=== PATIENT | female | born 1990 | race Asian ===

== ENCOUNTER 2018-12-26 14:09 | Outpatient (CLI) | payer OTHER ==
[2018-12-26 16:40] LABS: ADD MAN DIFF? NO
[2018-12-26 16:44] LABS: WHITE BLOOD COUNT 9.2 10^3/ul (4.8-10.8)
[2018-12-26 16:44] LABS: BASOPHILS % 0.2 % (0.0-2.0); EOSINOPHILS # 0.1 10^3/ul (0.0-0.5); EOSINOPHILS % 0.5 % (0.0-7.0); HEMOGLOBIN 11.4 g/dl (12.0-16.0); LYMPHOCYTES # 1.7 10^3/ul (0.8-2.9); LYMPHOCYTES % 18.6 % (15.0-51.0); MEAN CORPUSCULAR HEMOGLOBIN 31.6 pg (29.0-33.0); MEAN CORPUSCULAR HGB CONC 32.6 g/dl (32.0-37.0); MONOCYTE # 0.7 10^3/ul (0.3-0.9); MONOCYTES % 7.4 % (0.0-11.0); NEUTROPHIL # 6.6 10^3/ul (1.6-7.5); NEUTROPHILS % 72.3 % (39.0-77.0); PLATELET COUNT 164 10^3/UL (140-415); RED BLOOD COUNT 3.61 10^6/ul (4.20-5.40); RED CELL DISTRIBUTION WIDTH 12.9 % (11.5-14.5)
[2018-12-26 16:54] LABS: ADD UMIC NO; UR ASCORBIC ACID NEGATIVE (NEGATIVE); UR BILIRUBIN (Dip) NEGATIVE (NEGATIVE); UR BLOOD (Dip) NEGATIVE (NEGATIVE); UR CLARITY CLEAR (CLEAR); UR COLOR YELLOW (YELLOW); UR GLUCOSE (Dip) NEGATIVE (NEGATIVE); UR KETONES (Dip) NEGATIVE (NEGATIVE); UR LEUKOCYTE ESTERASE (Dip) NEGATIVE Leu/ul (NEGATIVE); UR NITRITE (Dip) NEGATIVE (NEGATIVE); UR SPECIFIC GRAVITY (Dip) 1.015 (1.003-1.030); UR TOTAL PROTEIN (Dip) NEGATIVE (NEGATIVE); UR UROBILINOGEN (Dip) NEGATIVE (NEGATIVE)
== END 2018-12-26 18:27 | disposition home or self-care (01) ==
LOC: OBT 14:09 → L-D 14:12 → OBT 18:27
DX: O60.03 Preterm labor without delivery, third trimester (principal); Z3A.31 31 weeks gestation of pregnancy
CPT/HCPCS: 76815; 76818; 81003; 85025; 87086

== ENCOUNTER 2019-02-19 14:38 | Outpatient (CLI) | payer SELFPAY, OTHER | END 2019-02-19 18:25 | disposition home or self-care (01) | LOC: OBT 14:38 → L-D 14:38 → OBT 18:25 | DX: O62.9 Abnormality of forces of labor, unspecified (principal); Z3A.39 39 weeks gestation of pregnancy | CPT/HCPCS: 76815; 76818 ==

== ENCOUNTER 2019-02-24 03:00 | Inpatient (IN) | payer MEDICAID, OTHER ==
[2019-02-24] MEDS ORDERED: METHYLERGONOVINE 0.2 MG INJ IM ×2 (04:30→15:30)
[2019-02-24] MEDS ORDERED: LIDOCAINE 1% (MPF) 30 ML INJ INJ (04:30)
[2019-02-24] MEDS ORDERED: MINERAL OIL LIGHT 10 ML VIAL TOP (04:30)
[2019-02-24] MEDS ORDERED: CARBOPROST 250 MCG INJ IM ×2 (04:30→15:30)
[2019-02-24] MEDS ORDERED: MISOPROSTOL 200 MCG TAB PR ×2 (04:30→15:30)
[2019-02-24] MEDS ORDERED: OXYTOCIN 30 UNITS/LR 500 ML IV ×3 (04:30→15:30)
[2019-02-24] MEDS ORDERED: BUTORPHANOL 2 MG INJ IV (04:30)
[2019-02-24] MEDS: LACTATED RINGER'S 1,000 ML IV ×3 (04:46→10:00)
[2019-02-24 05:16] LABS: ADD MAN DIFF? NO
[2019-02-24 05:25] LABS: BASOPHILS % 0.3 % (0.0-2.0); EOSINOPHILS # 0.1 10^3/ul (0.0-0.5); EOSINOPHILS % 0.5 % (0.0-7.0); HEMATOCRIT 36.8 % (37.0-47.0); HEMOGLOBIN 12.4 g/dl (12.0-16.0); LYMPHOCYTES # 1.6 10^3/ul (0.8-2.9); LYMPHOCYTES % 15.8 % (15.0-51.0); MEAN CORPUSCULAR HGB CONC 33.7 g/dl (32.0-37.0); MEAN CORPUSCULAR VOLUME 94.8 fl (82.0-101.0); MEAN PLATELET VOLUME 11.6 fl (7.4-10.4); MONOCYTE # 0.8 10^3/ul (0.3-0.9); MONOCYTES % 8.4 % (0.0-11.0); NEUTROPHIL # 7.3 10^3/ul (1.6-7.5); NEUTROPHILS % 73.7 % (39.0-77.0); PLATELET COUNT 166 10^3/UL (140-415); RED BLOOD COUNT 3.88 10^6/ul (4.20-5.40); RED CELL DISTRIBUTION WIDTH 12.7 % (11.5-14.5)
[2019-02-24 05:25] LABS: WHITE BLOOD COUNT 9.9 10^3/ul (4.8-10.8)
[2019-02-24 05:45] LABS: INR 0.88; PT RATIO 0.9
[2019-02-24 05:46] LABS: PARTIAL THROMBOPLASTIN TIME 26.9 Sec (23.0-35.0)
[2019-02-24 06:10] LABS: HEPATITIS B SURFACE ANTIGEN NEGATIVE (NEGATIVE)
[2019-02-24] MEDS ORDERED: FENTAnyl 2MCG/ML-ROPIV 0.2% 100 ML (08:14)
[2019-02-24] MEDS ORDERED: NALOXONE (0.4 MG/ML) INJ IV (08:30)
[2019-02-24] MEDS ORDERED: ONDANSETRON 4 MG INJ IV ×2 (08:30→15:30)
[2019-02-24] MEDS ORDERED: DIPHENHYDRAMINE 50 MG INJ IV (08:30)
[2019-02-24] MEDS ORDERED: FENTAnyl 2MCG/ML-ROPIV 0.2% 100 ML BAG EPI (08:30)
[2019-02-24] MEDS: OXYTOCIN 30 UNITS/LR 500 ML IV ×3 (09:35→20:00)
[2019-02-24] MEDS ORDERED: HYDROCODONE/APAP (5/325) TAB PO (15:30)
[2019-02-24] MEDS ORDERED: MAGNESIUM HYDROXIDE 30ML CUP PO (15:30)
[2019-02-24] MEDS ORDERED: ZOLPIDEM 5 MG TAB PO (15:30)
[2019-02-24] MEDS ORDERED: NA PHOSPHATE/BIPHOS 133 ML ENEMA PR (15:30)
[2019-02-24] MEDS ORDERED: METHYLERGONOVINE 0.2 MG TAB PO (15:30)
[2019-02-24] MEDS ORDERED: DIPHENHYDRAMINE 25 MG CAP PO (15:30)
[2019-02-24] MEDS: IBUPROFEN 600 MG TAB PO (16:25)
[2019-02-24 17:18] LABS: RAPID PLASMA REAGIN NONREACTIVE (NR)
[2019-02-24] MEDS: LANOLIN HPA 1 PKT TOP (18:16)
[2019-02-24] MEDS: WITCH HAZEL/GLYCERIN PAD PR (18:16)
[2019-02-24] MEDS: BENZOCAINE 20% 56 ML SPRAY TOP (18:16)
[2019-02-24] MEDS: LACTATED RINGER'S 1,000 ML IV* ×2 (21:18→23:20)
[2019-02-24] MEDS: SENNA/DOCUSATE NA (8.6MG/50MG) TAB PO (21:52)
[2019-02-25] MEDS: IBUPROFEN 600 MG TAB PO
[2019-02-25] MEDS: LACTATED RINGER'S 1,000 ML IV (04:04)
[2019-02-25 08:35] LABS: ADD MAN DIFF? NO
[2019-02-25 08:47] LABS: WHITE BLOOD COUNT 13.6 10^3/ul (4.8-10.8)
[2019-02-25 08:47] LABS: BASOPHILS % 0.1 % (0.0-2.0); EOSINOPHILS % 0.2 % (0.0-7.0); HEMATOCRIT 33.7 % (37.0-47.0); HEMOGLOBIN 11.4 g/dl (12.0-16.0); LYMPHOCYTES # 1.5 10^3/ul (0.8-2.9); LYMPHOCYTES % 11.1 % (15.0-51.0); MEAN CORPUSCULAR HEMOGLOBIN 32.3 pg (29.0-33.0); MEAN CORPUSCULAR HGB CONC 33.8 g/dl (32.0-37.0); MEAN CORPUSCULAR VOLUME 95.5 fl (82.0-101.0); MEAN PLATELET VOLUME 11.3 fl (7.4-10.4); MONOCYTES % 7.4 % (0.0-11.0); NEUTROPHIL # 10.9 10^3/ul (1.6-7.5); NEUTROPHILS % 80.4 % (39.0-77.0); PLATELET COUNT 148 10^3/UL (140-415); RED BLOOD COUNT 3.53 10^6/ul (4.20-5.40); RED CELL DISTRIBUTION WIDTH 12.8 % (11.5-14.5)
[2019-02-25] MEDS: SENNA/DOCUSATE NA (8.6MG/50MG) TAB PO ×2 (09:12→22:20)
[2019-02-25] MEDS: LANOLIN HPA 1 PKT TOP (12:42)
[2019-02-25] MEDS: HYDROCODONE/APAP (5/325) TAB PO (18:46)
[2019-02-26] MEDS: IBUPROFEN 600 MG TAB PO (00:21)
[2019-02-26] MEDS: MEASLES,MUMPS,RUBELLA VACCINE INJ SC* (09:00)
[2019-02-26] MEDS: VARICELLA VACCINE LIVE/PF 1,350 UNIT/0.5 ML ML SC* (09:00)
[2019-02-26] MEDS: SENNA/DOCUSATE NA (8.6MG/50MG) TAB PO (09:44)
[2019-02-26] MEDS: HYDROCODONE/APAP (5/325) TAB PO (09:53)
[2019-02-26] MEDS: WITCH HAZEL/GLYCERIN PAD PR (11:40)
[2019-02-26] MEDS: BENZOCAINE 20% 56 ML SPRAY TOP (11:40)
[2019-02-26] MEDS: DIPHTH/TET/ACEL PERTUSS (ADULT) 0.5 ML VIAL IM* (14:19)
[2019-02-26] MEDS: LANOLIN HPA 1 PKT TOP (14:43)
== END 2019-02-26 15:10 | disposition home or self-care (01) | DRG 807 ==
LOC: OBT 03:00 → L-D 03:00 → OBT 03:33 → L-D 03:33 → PP1 17:00
PROVIDERS: Obstetrics & Gynecology
PROC: 10D07Z6 Extraction of Products of Conception, Vacuum, Via Natural or Artificial Opening (ICD-10-PCS; principal; 2019-02-24)
PROC: 0W8NXZZ Division of Female Perineum, External Approach (ICD-10-PCS; 2019-02-24)
DX: O75.81 Maternal exhaustion complicating labor and delivery (principal); Z37.0 Single live birth; Z3A.39 39 weeks gestation of pregnancy; O69.81X0 Labor and delivery complicated by cord around neck, without compression, not applicable or unspecified
CPT/HCPCS: 62322; 76815; 85025; 85610; 85730; 86592; 86850; 86900; 86901; 87340; 90715; 90716; 97162; 99464

== ENCOUNTER 2019-02-27 10:16 | Emergency (ER) | payer OTHER ==
[2019-02-27] MEDS: ONDANSETRON 4 MG INJ IV (11:21)
[2019-02-27] MEDS: morphine 4 MG/ML VIAL IV (11:22)
[2019-02-27] MEDS: SOD CHLORIDE 0.9% 1,000 ML IV (11:22)
[2019-02-27 11:25] LABS: ADD MAN DIFF? NO
[2019-02-27 11:26] LABS: BASOPHILS % 0.2 % (0.0-2.0); EOSINOPHILS # 0.1 10^3/ul (0.0-0.5); HEMATOCRIT 35.4 % (37.0-47.0); HEMOGLOBIN 11.7 g/dl (12.0-16.0); LYMPHOCYTES # 0.9 10^3/ul (0.8-2.9); LYMPHOCYTES % 7.2 % (15.0-51.0); MEAN CORPUSCULAR HEMOGLOBIN 31.7 pg (29.0-33.0); MEAN CORPUSCULAR HGB CONC 33.1 g/dl (32.0-37.0); MEAN CORPUSCULAR VOLUME 95.9 fl (82.0-101.0); MEAN PLATELET VOLUME 10.7 fl (7.4-10.4); MONOCYTE # 0.8 10^3/ul (0.3-0.9); MONOCYTES % 6.2 % (0.0-11.0); NEUTROPHIL # 10.5 10^3/ul (1.6-7.5); NEUTROPHILS % 84.5 % (39.0-77.0); PLATELET COUNT 180 10^3/UL (140-415); RED BLOOD COUNT 3.69 10^6/ul (4.20-5.40); RED CELL DISTRIBUTION WIDTH 12.7 % (11.5-14.5)
[2019-02-27 11:26] LABS: WHITE BLOOD COUNT 12.4 10^3/ul (4.8-10.8)
[2019-02-27 11:48] LABS: INR 0.87; PARTIAL THROMBOPLASTIN TIME 25.4 Sec (23.0-35.0); PROTIME 11.9 Sec (11.9-14.9); PT RATIO 0.9
[2019-02-27 11:55] LABS: ALANINE AMINOTRANSFERASE 15 IU/L (13-69); ALBUMIN 3.4 g/dl (3.3-4.9); ALBUMIN/GLOBULIN RATIO 1.06; ALKALINE PHOSPHATASE 79 IU/L (42-121); ANION GAP 7 (5-13); ASPARTATE AMINO TRANSFERASE 26 IU/L (15-46); BILIRUBIN,INDIRECT 0.2 mg/dl (0-1.1); BILIRUBIN,TOTAL 0.2 mg/dl (0.2-1.3); BLOOD UREA NITROGEN 12 mg/dl (7-20); CALCIUM 9.2 mg/dl (8.4-10.2); CARBON DIOXIDE 25 mmol/L (21-31); CHLORIDE 109 mmol/L (97-110); CREATININE 0.45 mg/dl (0.44-1.00); Estimated GFR > 60 mL/min (>60); GLUCOSE 90 mg/dl (70-220); SODIUM 141 mmol/L (135-144); TOTAL PROTEIN 6.6 g/dl (6.1-8.1)
[2019-02-27 12:05] LABS: TROPONIN-I < 0.012 ng/ml (0.000-0.120)
[2019-02-27] MEDS: SOD CHLORIDE 0.9% 100 ML (12:58)
[2019-02-27] MEDS: IOHEXOL 300MG/ML 150 ML BTL (12:59)
[2019-02-27] MEDS ORDERED: FENTAnyl 50 MCG/ML VIAL (15:56)
[2019-02-27] MEDS: LORAZEPAM 2 MG INJ IV (16:12)
[2019-02-27] MEDS: FENTAnyl 50 MCG/ML VIAL IV (16:16)
== END 2019-02-27 18:38 | disposition home or self-care (01) ==
LOC: E/R 18:38
DX: O90.89 Other complications of the puerperium, not elsewhere classified (principal); G97.1 Other reaction to spinal and lumbar puncture; R40.2142 Coma scale, eyes open, spontaneous, at arrival to emergency department; R40.2252 Coma scale, best verbal response, oriented, at arrival to emergency department; R40.2362 Coma scale, best motor response, obeys commands, at arrival to emergency department
CPT/HCPCS: 70450; 74177; 80053; 84484; 85025; 85610; 85730; 96374; 96375; 99285-25